=== PATIENT | male | born 1975 | race Two or more races ===

== ENCOUNTER 2021-03-13 08:14 | Emergency (ER) | payer OTHER ==
[~2021-03-13] VITALS: Ht 180.3 cm; Wt 86.2 kg
[2021-03-13] MEDS ORDERED: KETO10TA2 PO (13:26)
== END 2021-03-13 13:52 ==
LOC: ER 08:14
DX: S83.8X1A Sprain of other specified parts of right knee, initial encounter (principal); X58.XXXA Exposure to other specified factors, initial encounter; Y93.75 Activity, martial arts; Y92.89 Other specified places as the place of occurrence of the external cause; Y99.8 Other external cause status